=== PATIENT | female | born 1980 | race Caucasian/White ===

== ENCOUNTER 2018-02-16 10:23 | Emergency (ER) | payer MEDICAID ==
[~2018-02-16 10:23] MED LIST: ADV250/50 INH; ALB0.5 IH; ALB0.5 INH; ALB17R INH; ALB18R INH; ALBU8.5H12 IH; ALBUDR INH; ALP5 PO; AMO500 PO; AMO875 PO; AMOX-559 PO; AZI250 PO; BENZ200C15 PO; CEF300 PO; CEP500 PO; CIT20 PO; CLI150 PO; CLIN100S3 PO; DOXY-179 PO; DOXY150T6 PO; ENO100I SC; HYDR-3078 PO; HYDR-3250 FT; HYDR-4308 PO; HYDR-4309 PO; HYDR473S4 PO; IBU800 PO; IPRA14.76 INH; KET10 PO; LEV15R INH; LEVO-85 PO; LOR1 PO; LOR5 PO; LOR5/325 PO; LORA-630 PO; MON10 PO; NO ROUTINE MEDS; ONDA4TAB PO; OXYC-865 PO; OXYC1TAB54 PO; PER PO; PHEN120S16 PO; PRE10 PO; PRE20 PO; PRED-314 PO; PRED20TA6 PO; WAR5 PO; [UNRECOGNIZED DRUG - CODE] PO; [UNRECOGNIZED DRUG - CODE] PO; [UNRECOGNIZED DRUG - OTHER]
--- NOTE | 2018-02-16 10:31 | ER Report ---
History and Physical Time Seen By MD: 10:31 HPI/CHRIS CHIEF COMPLAINT: Neck and shoulder pain HISTORY OF PRESENT ILLNESS: This is a 37-year-old female who presents to the ED for right neck and right shoulder pain. Patient states that Friday she was helping her son lift some equipment up and felt okay Friday night felt okay Friday, then Friday evening began to have some discomfort in her right neck and shoulder. Patient states then it progressively increased over the week she was evaluated by the local PA and was treated outpatient for neck pain secondary to straining while lifting. The patient states that the pain is so intense at times she does have bouts of nausea, no vomiting. Patient denies aches, chills, visual changes, headaches, diarrhea or abdominal pain. Patient is tearful at the time of my exam. She has been taking 800 mg ibuprofen twice a day to help with some of the pain as well as Flexeril. REVIEW OF SYSTEMS: Respiratory: No cough, no dyspnea. Cardiovascular: No chest pain, no palpitations. Gastrointestinal: No vomiting, no abdominal pain. Musculoskeletal: As above. Allergies: Coded Allergies: No Known Drug Allergies (Verified , 02/16/18) Uncoded Allergies: RAG WEED (Allergy, Mild, 05/07/10) Home Meds Active Scripts Metaxalone (SKELAXIN) 800 Mg Tablet, 800 MG PO TID Y for prn, #16 TAB 0 Refills Prov:MARBELLA ZAMBRANO [facility]- 02/16/18 Ibuprofen (IBUPROFEN) 800 Mg Tablet, 1 TAB PO Q8H, #12 TAB Prov:MARBELLA ZAMBRANO [facility]- 02/16/18 Reported Medications Ibuprofen (IBUPROFEN) 800 Mg Tablet, 1 TAB PO Q8H, TAB 02/16/18 Venlafaxine Hcl (VENLAFAXINE HCL ER) 37.5 Mg Cap.er.24h, 150 QDAY 02/16/18 Lorazepam (LORAZEPAM) 0.5 Mg Tablet, 0.5 MG PO Q4-6H Y for ANXIETY 08/15/17 Discontinued Reported Medications Albuterol Sulfate (VENTOLIN HFA) 18 Gm Inh, 2 PUFF INH Q4-6H, INH 02/03/17 [Antidepress] No Conflict Check 11/27/15 Albuterol Sulfate (Albuterol Inh Conc) 2.5 Mg/0.5 Ml Nebu, 1 INH PRN 03/29/13 Discontinued Scripts Ondansetron (ZOFRAN ODT) 4 Mg Tab.rapdis, 4 MG PO Q6H Y for NAUSEA/VOMITING, # 20 TAB.BANG 0 Refills Prov:DAVIS WHITLOCK MD 08/15/17 Ketorolac Tromethamine (KETOROLAC TROMETHAMINE) 10 Mg Tab, 10 MG PO Q6H Y for PAIN, #12 TAB 0 Refills Prov:DAVIS WHITLOCK MD 08/15/17 Oxycodone Hcl/Acetaminophen (PERCOCET 5-325 MG TABLET) 1 Each Tablet, 1 EACH PO Q4H Y for PAIN, #12 TAB 0 Refills Prov:DAVIS WHITLOCK MD 08/15/17 Past Medical/Surgical History Patient has a past medical and surgical history of asthma, PE, kidney stones, chronic tonsillitis, tubal ligation, wisdom teeth extraction. Reviewed Nurses Notes: Yes Hx Smoking: Yes (1PPD) Smoking Status: Current: Every Day Smoker Exposure to Second Hand Smoke?: Yes Hx Substance Use Disorder: No Hx Alcohol Use: Yes Constitutional Vital Sign - Last 24 Hours 02/16/18 02/16/18 02/16/18 02/16/18 10:25 10:28 10:30 10:38 Temp 97.8 Pulse 88 83 Resp 16 B/P (MAP) 147/93 150/101 (117) 147/93 (111) Pulse Ox 97 99 O2 Delivery Room Air 02/16/18 02/16/18 02/16/18 11:08 11:23 11:30 Pulse 145 B/P (MAP) 153/101 (118) Pulse Ox 89 90 Physical Exam General Appearance: The patient is alert, has no immediate need for airway protection and no current signs of toxicity, tearful. Eyes: Pupils equal and round no injection. Respiratory: Chest is non tender, lungs are clear to auscultation. Cardiac: regular rate and rhythm, no clicks, murmurs or rubs. Gastrointestinal: Abdomen is soft and non tender, no masses, bowel sounds normal. Musculoskeletal: Neck: Right side of neck is tight, no obvious deformities to the cervical spine. No crepitus. No step-offs. Pain to cervical spine with palpation, pain to thoracic spine with palpation. Extremities have full range of motion and are non tender. No numbness or tingling. No paresthesias. Skin: No rashes or lesions. DIFFERENTIAL DIAGNOSIS: After history and physical exam differential diagnosis was considered for cervical strain, torticollis, cervical fracture, thoracic strain, cervical radiculopathy and cervical outlet syndrome. Medical Decision Making EKG/Imaging Imaging Location: [facility] Patient: Carolina Crowell : 1980 Visit/Account:[id number] Date of Sevice: 02/16/2018 CERVICAL SPINE MIN 4 VIEW, THORACIC SPINE 3 VIEWS HISTORY: neck and back pain COMPARISON: None. FINDINGS: Three views of the thoracic spine are submitted. Mild levoscoliotic curvature. Very mild degenerative spondylotic changes are seen which are stable. No fracture or acute destructive osseous process. 5 views cervical spine are submitted. Prevertebral soft tissues within normal limits. Very mild spondylotic narrowing with anterior calcifications over the disc space at C4-C5 and C5-C6 is seen. No fracture or destructive osseous process. Bilateral oblique images demonstrate no osseous foraminal encroachment. Odontoid view is symmetric. IMPRESSION: 1. Mild levoscoliotic curvature the thoracic spine without acute finding. Minimal spondylotic changes 2. Very mild spondylotic changes C4-C5 and C5-C6 without acute osseous finding involving the cervical spine. Report Dictated By: Severiano Robert MD at 02/16/2018 11:18 AM Report E-Signed By: Severiano Robert MD at 02/16/2018 11:23 AM WSN:[email or web address] CERVICAL SPINE MIN 4 VIEW, THORACIC SPINE 3 VIEWS HISTORY: neck and back pain COMPARISON: None. FINDINGS: Three views of the thoracic spine are submitted. Mild levoscoliotic curvature. Very mild degenerative spondylotic changes are seen which are stable. No fracture or acute destructive osseous process. 5 views cervical spine are submitted. Prevertebral soft tissues within normal limits. Very mild spondylotic narrowing with anterior calcifications over the disc space at C4-C5 and C5-C6 is seen. No fracture or destructive osseous process. Bilateral oblique images demonstrate no osseous foraminal encroachment. Odontoid view is symmetric. IMPRESSION: 1. Mild levoscoliotic curvature the thoracic spine without acute finding. Minimal spondylotic changes 2. Very mild spondylotic changes C4-C5 and C5-C6 without acute osseous finding involving the cervical spine. Report Dictated By: Severiano Robert MD at 02/16/2018 11:18 AM Report E-Signed By: Severiano Robert MD at 02/16/2018 11:23 AM WSN:[email or web address] ED Course/Re-evaluation ED Course The patient was admitted to room. A history of disc or pain. Differential diagnoses were considered. A cervical spine and thoracic x-rays were obtained which were negative for any acute findings. 60 mg IM Norflex was given to patient. With mild relief. I did review these results with the patient she remained tearful. I did do 3 trigger point injections to the right trapezius muscle using 0.5% bupivacaine. Patient tolerated well. I did send a prescription for 800 mg ibuprofen and Skelaxin to the patient's pharmacy. I did tell the patient that this is likely a torticollis and will likely take some time to resolve. Take the medications as directed as well as trying a warm pack to the right trapezius muscle. Patient was in agreement with my care and discharged home. Decision to Disposition Date: Feb 16, 2018 Decision to Disposition Time: 11:43 Depart Departure Latest Vital Signs Vital Signs Date Time Temp Pulse Resp B/P (MAP) Pulse Ox O2 Delivery O2 Flow Rate FiO2 02/16/18 11:30 153/101 (118) 02/16/18 11:23 90 02/16/18 11:08 145 02/16/18 10:25 97.8 16 Room Air Impression: Primary Impression: Torticollis, acute Condition: Improved Disposition: HOME OR SELF-CARE New Scripts Metaxalone (SKELAXIN) 800 Mg Tablet 800 MG PO TID Y for prn, #16 TAB 0 Refills Prov: MARBELLA ZAMBRANOP-BC 02/16/18 Ibuprofen (IBUPROFEN) 800 Mg Tablet 1 TAB PO Q8H, #12 TAB Prov: MARBELLA ZAMBRANO-AMMY 02/16/18 Departure Forms: ER Transition Record, Medications Reconciliation, Off Work/ School Form, School or Work Release?: Work Number of days to be released: 1 Patient Portal Information Patient Instructions: Spasmodic Torticollis (ED) Additional Instructions: Drink plenty of fluids. Get plenty of rest. Try the new muscle relaxer and ibuprofen every 8 hours as needed. Follow up as indicated. Return for any other concerns or worsening symptoms. MARBELLA ZAMBRANO HOSPITALIST PHYSICIAN-BC Feb 16, 2018 10:31
[2018-02-16] MEDS ORDERED: VENL37.53 (10:32)
[2018-02-16] MEDS ORDERED: IBUP800T37 PO ×2 (10:32→11:40)
[2018-02-16] MEDS ORDERED: ORPHENADRINE 60MG/2ML INJ IM ONE (10:40)
--- NOTE | 2018-02-16 11:26 | RADIOLOGY IMAGING REPORT ---
FACILITY: [facility] [place] PATIENT NAME: Carolina Crowell : 1980 MR: [id number] V: [id number] EXAM DATE: ORDERING PHYSICIAN: MARBELLA ZAMBRANO TECHNOLOGIST: Location: [facility] Patient: Carolina Crowell : 1980 Visit/Account:[id number] Date of Sevice: 02/16/2018 CERVICAL SPINE MIN 4 VIEW, THORACIC SPINE 3 VIEWS HISTORY: neck and back pain COMPARISON: None. FINDINGS: Three views of the thoracic spine are submitted. Mild levoscoliotic curvature. Very mild degenerati ve spondylotic changes are seen which are stable. No fracture or acute destructive osseous process. 5 views cervical spine are submitted. Prevertebral soft tissues within normal limits. Very mild spo ndylotic narrowing with anterior calcifications over the disc space at C4-C5 and C5-C6 is seen. No f racture or destructive osseous process. Bilateral oblique images demonstrate no osseous foraminal en croachment. Odontoid view is symmetric. IMPRESSION: 1. Mild levoscoliotic curvature the thoracic spine without acute finding. Minimal spondylotic busby es 2. Very mild spondylotic changes C4-C5 and C5-C6 without acute osseous finding involving the cervica l spine. Report Dictated By: Severiano Robert MD at 02/16/2018 11:18 AM Report E-Signed By: Severiano Robert MD at 02/16/2018 11:23 AM WSN:[email or web address]
--- NOTE | 2018-02-16 11:27 | RADIOLOGY IMAGING REPORT ---
FACILITY: [facility] PATIENT NAME: Carolina Crowell : 1980 MR: [id number] V: [id number] EXAM DATE: ORDERING PHYSICIAN: MARBELLA ZAMBRANO TECHNOLOGIST: Location: [facility] Patient: Carolina Crowell : 1980 Visit/Account:[id number] Date of Sevice: 02/16/2018 CERVICAL SPINE MIN 4 VIEW, THORACIC SPINE 3 VIEWS HISTORY: neck and back pain COMPARISON: None. FINDINGS: Three views of the thoracic spine are submitted. Mild levoscoliotic curvature. Very mild degenerati ve spondylotic changes are seen which are stable. No fracture or acute destructive osseous process. 5 views cervical spine are submitted. Prevertebral soft tissues within normal limits. Very mild spo ndylotic narrowing with anterior calcifications over the disc space at C4-C5 and C5-C6 is seen. No f racture or destructive osseous process. Bilateral oblique images demonstrate no osseous foraminal en croachment. Odontoid view is symmetric. IMPRESSION: 1. Mild levoscoliotic curvature the thoracic spine without acute finding. Minimal spondylotic busby es 2. Very mild spondylotic changes C4-C5 and C5-C6 without acute osseous finding involving the cervica l spine. Report Dictated By: Severiano Robert MD at 02/16/2018 11:18 AM Report E-Signed By: Severiano Robert MD at 02/16/2018 11:23 AM WSN:[email or web address]
[2018-02-16 11:30] VITALS: BP 153/101
[2018-02-16] MEDS ORDERED: META800T18 PO (11:40)
== END 2018-02-16 11:51 | disposition home or self-care (01) ==
LOC: ER 10:39
DX: M43.6 Torticollis (principal)
CPT/HCPCS: 72050; 72072; 96372; 99283; J2360

== ENCOUNTER 2018-08-29 18:13 | Emergency (ER) | payer MEDICAID ==
[~2018-08-29 18:13] MED LIST changes: +IBUP800T37 PO; +META800T18 PO; +VENL37.53
[2018-08-29 18:18] VITALS: BP 140/85
[2018-08-29] MEDS ORDERED: AMOX-362 PO (18:25)
[2018-08-29] MEDS ORDERED: LOR5/325 PO (18:25)
--- NOTE | 2018-08-29 18:26 | ER Report ---
History and Physical Time Seen By MD: 18:20 Hx. of Stated Complaint: PATIENT REPORTING THAT SHE THINKS SHE HAS A DENTAL INFECTION. SHE IS REPORTING RIGHT SIDED PAIN ON HER UPPER AND LOWER JAW HPI/ROS CHIEF COMPLAINT: Toothache, filling came out HISTORY OF PRESENT ILLNESS: This is a 37-year-old female. She has right-sided dental pain. Diffuse throughout the side of her face jaw up into her ear. Her filling came out of her lower second molar couple of days ago now having severe pain. She has packed some dental wax into the tooth. She does have a dentist av ailable but will need to call them on Friday for an appointment. Has some associated swelling on the right side of her face. Allergies: Coded Allergies: No Known Drug Allergies (Verified , 02/16/18) Uncoded Allergies: RAG WEED (Allergy, Mild, 05/07/10) Home Meds Active Scripts Hydrocodone Bit/Acetaminophen (HYDROCODON-ACETAMINOPHEN 5-325) 1 Each Tablet, 1 EACH PO Q4H PRN for PAIN, #12 TAB 0 Refills Prov:DAVIS WHITLOCK MD 08/29/18 Amoxicillin (AMOXICILLIN) 500 Mg Capsule, 1 CAP PO Q8H, #30 CAPSULE 0 Refills Prov:DAVIS WHITLOCK MD 08/29/18 Ibuprofen (IBUPROFEN) 800 Mg Tablet, 1 TAB PO Q8H, #12 TAB Prov:MARBELLA ZAMBRANO DOGMAN/WOMAN- 02/16/18 Reported Medications Ibuprofen (IBUPROFEN) 800 Mg Tablet, 1 TAB PO Q8H, TAB 02/16/18 Venlafaxine Hcl (VENLAFAXINE HCL ER) 37.5 Mg Cap.er.24h, 150 QDAY 02/16/18 Discontinued Reported Medications Lorazepam (LORAZEPAM) 0.5 Mg Tablet, 0.5 MG PO Q4-6H PRN for ANXIETY 08/15/17 Discontinued Scripts Metaxalone (SKELAXIN) 800 Mg Tablet, 800 MG PO TID PRN for prn, #16 TAB 0 Refills Prov:MARBELLA ZAMBRANO DOGMAN/WOMAN- 02/16/18 Reviewed Nurses Notes: Yes Hx Smoking: Yes (1PPD) Smoking Status: Current: Every Day Smoker Exposure to Second Hand Smoke?: Yes Hx Substance Use Disorder: No Hx Alcohol Use: Yes Constitutional Vital Sign - Last 24 Hours 08/29/18 08/29/18 18:18 18:38 Temp 97.7 Pulse 97 79 Resp 24 B/P (MAP) 140/85 Pulse Ox 89 O2 Delivery Room Air Physical Exam General Appearance: Alert, no distress. Eyes: Pupils equal and round no pallor or injection. ENT: Mucous membranes are moist. Oral mucosa is normal in appearance. Posterior oropharynx has no erythema or exudates. Redness around the right lower second molar on the inside gums. No sign of abscess. Tooth and gums are tender to percussion. Musculoskeletal: Neck is supple non tender, there is some submandibular lymphadenopathy. Skin: Warm and dry, no rashes. DIFFERENTIAL DIAGNOSIS: After history and physical exam differential diagnosis was considered for patient with dental pain due to irritation from loss of a filling as well as some redness of the gum. Medical Decision Making ED Course/Re-evaluation ED Course Home with some Lortab as well as ibuprofen for pain control. Started on amoxicillin. Follow-up with dentist this coming week Decision to Disposition Date: Aug 29, 2018 Decision to Disposition Time: 18:25 Depart Departure Latest Vital Signs Vital Signs Date Time Temp Pulse Resp B/P (MAP) Pulse Ox O2 Delivery O2 Flow Rate FiO2 08/29/18 18:38 79 08/29/18 18:18 97.7 24 140/85 89 Room Air Impression: Primary Impression: Pain, dental Condition: Improved Disposition: HOME OR SELF-CARE New Scripts Hydrocodone Bit/Acetaminophen (HYDROCODON-ACETAMINOPHEN 5-325) 1 Each Tablet 1 EACH PO Q4H PRN for PAIN, #12 TAB 0 Refills Prov: DAVIS WHITLOCK MD 08/29/18 Amoxicillin (AMOXICILLIN) 500 Mg Capsule 1 CAP PO Q8H, #30 CAPSULE 0 Refills Prov: DAVIS WHITLOCK MD 08/29/18 Patient Instructions: Toothache (ED) Additional Instructions: Take the antibiotic Amoxicillin 500mg three times a day. Ibuprofen 200mg over the counter tablets, take 4 tablets every 8 hours. Lortab 5/325, one every 4 hours as needed for severe pain. Call your dentist on Friday to arrange follow-up. DAVIS WHITLOCK MD Aug 29, 2018 18:26
[2018-08-29] MEDS ORDERED: AMOXICILLIN 500 MG CAP PO ONE (18:30)
[2018-08-29] MEDS ORDERED: ACET/HYDROC 5/325MG TH ER ONLY 2 TAB/BOTTLE PO ONE (18:30)
== END 2018-08-29 18:39 | disposition home or self-care (01) ==
LOC: ER 18:17
DX: K08.89 Other specified disorders of teeth and supporting structures (principal)
CPT/HCPCS: 99283

== ENCOUNTER 2018-09-23 14:58 | Emergency (ER) | payer MEDICAID ==
[~2018-09-23 14:58] MED LIST changes: +AMOX-362 PO; -HYDR-4308 PO; -HYDR-4309 PO; +HYDR-653 PO; +HYDR-654 PO
[2018-09-23] MEDS ORDERED: VENL225T5 PO (15:05)
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
[2018-09-23] MEDS ORDERED: ADENOSINE(*)IV SOLN 3MG/ML IVP ONE ×2 (15:10)
[2018-09-23] MEDS ORDERED: NS(*) 0.9% 1000 ML BAG 1,000 ML IV ONE (15:10)
[2018-09-23] MEDS ORDERED: LORazepam 2 MG/ML VIAL IVP ONE (15:10)
--- NOTE | 2018-09-23 15:30 | EKG ---
FACILITY: [facility] PATIENT NAME: ERIK COX : [id number] MR: [id number] V: [id number] EXAM DATE: ORDERING PHYSICIAN: MARBELLA ZAMBRANO TECHNOLOGIST: BUDDY Test Reason : SVT Blood Pressure : / mmHG Vent. Rate : 176 BPM Atrial Rate : 170 BPM P-R Int : 000 ms QRS Dur : 086 ms QT Int : 268 ms P-R-T Axes : 000 086 -88 degrees QTc Int : 458 ms Supraventricular tachycardia T wave abnormality, consider inferolateral ischemia Abnormal ECG No previous ECGs available Confirmed by FLORIAN MOLINA ([id number]) on 09/24/2018 6:24:04 AM Referred By: MARBELLA Confirmed By:FLORIAN MOLINA
--- NOTE | 2018-09-23 15:37 | EKG ---
[place] [facility] [place] NAME: ERIK COX : [id number] MR: [id number] V: [id number] EXAM DATE: ORDERING PHYSICIAN: MARBELLA ZAMBRANO TECHNOLOGIST: BUDDY Test Reason : SVT Blood Pressure : / mmHG Vent. Rate : 109 BPM Atrial Rate : 109 BPM P-R Int : 140 ms QRS Dur : 082 ms QT Int : 332 ms P-R-T Axes : 084 089 243 degrees QTc Int : 447 ms Sinus tachycardia Right atrial enlargement T wave abnormality, consider inferior ischemia T wave abnormality, consider anterolateral ischemia Abnormal ECG When compared with ECG of 23-SEP-2018 15:13, Vent. rate has decreased BY 67 BPM T wave inversion more evident in Anterior leads Confirmed by FLORIAN MOLINA ([id number]) on 09/24/2018 6:24:25 AM Referred By: MARBELLA Confirmed By:FLORIAN MOLINA
[2018-09-23 15:44] LABS: PLATELET COUNT, AUTOMATED 264 K/uL (150-450)
[2018-09-23] MEDS ORDERED: MORPHINE 4 MG/ML SDV IVP ONE (15:45)
--- NOTE | 2018-09-23 16:20 | RADIOLOGY IMAGING REPORT ---
FACILITY: [facility] - [place] PATIENT NAME: Carolina Crowell : 1980 MR: [id number] V: [id number] EXAM DATE: ORDERING PHYSICIAN: MARBELLA ZAMBRANO TECHNOLOGIST: Location: [facility] Patient: Carolina Crowell : 1980 Visit/Account:[id number] Date of Sevice: 09/23/2018 CHEST PA AND LAT History: short of breath FINDINGS: Comparison studies: Chest x-ray 02/03/2017 Tubes and Lines: None. Lungs and pleura: A subtle airspace opacity seen in the right upper lung field on the prior study h as resolved. Lungs are well-aerated. No evidence of pneumonia. Mediastinum: normal. Cardiac silhouette: normal . Osseous structures: Unremarkable for age . IMPRESSION: Normal chest Report Dictated By: Toni Gilmore MD at 09/23/2018 4:15 PM Report E-Signed By: Toni Gilmore MD at 09/23/2018 4:16 PM [id number]
[2018-09-23] MEDS ORDERED: ONDANSETRON 4 MG/2 ML VIAL IVP ONE (16:25)
[2018-09-23] MEDS ORDERED: NS(*) 0.9% 50 ML BAG 50 ML ONE (17:11)
[2018-09-23] MEDS ORDERED: IOPAMIDOL 76% 75 ML INFUS BTL 75 ML ONE (17:11)
--- NOTE | 2018-09-23 17:58 | RADIOLOGY IMAGING REPORT ---
FACILITY: [facility] PATIENT NAME: Carolina Crowell : 1980 MR: [id number] V: [id number] EXAM DATE: [id number] ORDERING PHYSICIAN: MARBELLA ZAMBRANO TECHNOLOGIST: Location: [facility] [place] Patient: Carolina Crowell : 1980 Visit/Account:[id number] Date of Sevice: 09/23/2018 EXAMINATION: CTA of the chest with IV contrast HISTORY: Chest pain. Tachycardia. Elevated d-dimer. TECHNIQUE: Pulmonary embolus protocol - Thin axial CT images of the chest were obtained with IV con trast during maximal pulmonary arterial opacification. Reconstruction of the source data includes mul tiplanar 2D coronal and sagittal reconstructed images, and 3D coronal and sagittal MIP images. Repres entative images have been stored on PACS. One of the following dose optimization techniques was utilized in the performance of this exam: Autom ated exposure control; adjustment of the mA and/or kV according to the patient's size; or use of an i terative reconstruction technique. Specific details can be referenced in the facility's radiology C T exam operational policy. Contrast: 75 mL of IV Isovue-370. COMPARISON: 11/21/2014. FINDINGS: Pulmonary arteries: The pulmonary arteries are well opacified, without suspicious filling defect. Heart, aorta, and great vessels: Normal caliber thoracic aorta, without aneurysm or dissection. Norm al heart size. No pericardial effusion. Lungs and pleura: There is mild diffuse bronchial wall thickening. There are small regions of ground glass opacity in the right upper lobe laterally and anteriorly which may be compatible with an infect ious or inflammatory pneumonitis. Mediastinum and monica: Negative. Visualized upper abdomen: Unremarkable. Chest wall: Negative. Bones: Negative. IMPRESSION: 1. No evidence of pulmonary embolism. 2. Mild diffuse bronchial wall thickening may be compatible with bronchial inflammation. There are so me small regions of groundglass opacity in the right upper lobe laterally and anteriorly which may re present localized regions of pneumonitis. 3. No other acute findings in the chest. Report Dictated By: Danilo Rae MD at 09/23/2018 5:43 PM Report E-Signed By: Danilo Rae MD at 09/23/2018 5:54 PM WSN:[id number]
[2018-09-23] MEDS ORDERED: HYDR-385 PO (18:13)
[2018-09-23] MEDS ORDERED: LORA-1455 PO (18:13)
[2018-09-23 18:26] VITALS: BP 118/81
== END 2018-09-23 18:35 | disposition home or self-care (01) ==
LOC: ER 15:09
DX: I47.1 Supraventricular tachycardia (principal); F41.9 Anxiety disorder, unspecified; R07.89 Other chest pain
CPT/HCPCS: 36415; 71046; 71275; 84484; 85025; 85379; 93005; 96361; 96374; 96375; 99284; J0153; J2060; J2270; J2405; J7030; J7050; Q9967; 82040; 82247; 82310; 82374; 82435; 82565; 82947; 84075; 84132; 84155; 84295; 84450; 84460; 84520

== ENCOUNTER 2018-09-27 11:43 | Emergency (ER) | payer MEDICAID ==
[~2018-09-27 11:43] MED LIST changes: +HYDR-385 PO; +LORA-1455 PO; +VENL225T5 PO
[2018-09-27 12:10] VITALS: BP 136/113
[2018-09-27] MEDS ORDERED: NS(*) 0.9% 1000 ML BAG 1,000 ML IV ONE (12:18)
[2018-09-27] MEDS ORDERED: KETOROLAC 15 MG/ML VIAL IVP ONE (12:20)
--- NOTE | 2018-09-27 12:25 | ER Report ---
History and Physical Time Seen By MD: 12:14 HPI/ROS CHIEF COMPLAINT: Right back, abdominal pain HISTORY OF PRESENT ILLNESS: 37-year-old female patient presents to the emergency room with complaint of right back and abdominal pain. Patient states that she's been having pain since last night. She states that she had felt tired all day yesterday. She states when she woke up to go have dinner with her folks that she was having significant back pain. She states she did manage to go have dinner, however when she got home she went right back to sleep. Patient states when she woke up this morning the pain was still very significant. She states pain seems to wax and wane. She denies taking any medication for this. She denies any trauma to her back. She does have a history of kidney stones, however this does feel different. REVIEW OF SYSTEMS: Respiratory: No cough, no dyspnea. Cardiovascular: No chest pain, no palpitations. Gastrointestinal: No vomiting, no abdominal pain. Musculoskeletal: As noted above Allergies: Coded Allergies: No Known Drug Allergies (Verified , 02/16/18) Uncoded Allergies: RAG WEED (Allergy, Mild, 05/07/10) Home Meds Active Scripts Hydrocodone Bit/Acetaminophen (HYDROCODON-ACETAMINOPHEN 5-325) 1 Each Tablet, 1 EACH PO Q4-6H PRN for PAIN, #8 TAB Prov:ESTEFANÍA VARELA [facility] 09/27/18 Ondansetron (ZOFRAN ODT) 4 Mg Tab.rapdis, 4 MG PO Q6H PRN for NAUSEA/VOMITING, #20 TAB.BANG Prov:ESTEFANÍA VARELA [facility] 09/27/18 Reported Medications Venlafaxine Hcl (VENLAFAXINE HCL ER) 225 Mg Tab.er.24, 225 MG PO QDAY 09/23/18 Discontinued Reported Medications Ibuprofen (IBUPROFEN) 800 Mg Tablet, 1 TAB PO Q8H, TAB 02/16/18 Venlafaxine Hcl (VENLAFAXINE HCL ER) 37.5 Mg Cap.er.24h, 150 QDAY 02/16/18 Discontinued Scripts Hydrocodone Bit/Acetaminophen (HYDROCODON-ACETAMINOPHEN 5-325) 1 Each Tablet, 1 EACH PO Q4-6H PRN for PAIN, #5 TAB 0 Refills Prov:MARBELLA ZAMBRANO [employer] 09/23/18 Lorazepam (ATIVAN) 0.5 Mg Tablet, 0.5 MG PO Q4-6H, #5 TAB 0 Refills Prov:MARBELLA ZAMBRANO [employer]ELOPMENT MA[employer]GER[employer] 09/23/18 Hydrocodone Bit/Acetaminophen (HYDROCODON-ACETAMINOPHEN 5-325) 1 Each Tablet, 1 EACH PO Q4H PRN for PAIN, #12 TAB 0 Refills Prov:DAVIS WHITLOCK MD 08/29/18 Amoxicillin (AMOXICILLIN) 500 Mg Capsule, 1 CAP PO Q8H, #30 CAPSULE 0 Refills Prov:DAVIS WHITLOCK MD 08/29/18 Ibuprofen (IBUPROFEN) 800 Mg Tablet, 1 TAB PO Q8H, #12 TAB Prov:MARBELLA ZAMBRANO [employer] DEVELOPMENT MANAGER[employer] 02/16/18 Past Medical/Surgical History Patient has a past medical and surgical history of asthma, PE, kidney stones, chronic tonsillitis, tubal ligation, wisdom teeth extraction. Reviewed Nurses Notes: Yes Hx Smoking: Yes (1PPD) Smoking Status: Current: Every Day Smoker Exposure to Second Hand Smoke?: Yes Hx Substance Use Disorder: No Hx Alcohol Use: Yes Constitutional Vital Sign - Last 24 Hours 09/27/18 12:10 Temp 99.3 Pulse 108 Resp 16 B/P (MAP) 136/113 Pulse Ox 96 O2 Delivery Room Air Physical Exam General Appearance: The patient is alert, has no immediate need for airway protection and no current signs of toxicity. Respiratory: Chest is non tender, lungs are clear to auscultation. Cardiac: regular rate and rhythm Gastrointestinal: Abdomen is soft and diffusely tender, no masses, bowel sounds normal. Musculoskeletal: Neck: Neck is supple and non tender. Extremities have full range of motion and are non tender. Skin: No rashes or lesions. DIFFERENTIAL DIAGNOSIS: After history and physical exam differential diagnosis was considered for flank pain including but not limited to musculoskeletal causes, kidney stone, pyelonephritis, shingles, and intra-abdominal causes such as diverticulitis and appendicitis. Medical Decision Making Data Points Result Diagram: 09/27/18 1218 09/27/18 1218 Laboratory Hematology Test 09/27/18 12:18 09/27/18 12:47 Red Blood Count 5.18 M/uL (4.17-5.56) Mean Corpuscular Volume 94.0 fL (80.0-96.0) Mean Corpuscular Hemoglobin 32.4 pg (26.0-33.0) Mean Corpuscular Hemoglobin Concent 34.5 g/dL (32.0-36.0) Red Cell Distribution Width 13.2 % (11.5-14.5) Mean Platelet Volume 8.3 fL (7.2-11.1) Neutrophils (%) (Auto) 57.2 % (39.4-72.5) Lymphocytes (%) (Auto) 31.2 % (17.6-49.6) Monocytes (%) (Auto) 8.9 % (4.1-12.4) Eosinophils (%) (Auto) 1.4 % (0.4-6.7) Basophils (%) (Auto) 1.3 % (0.3-1.4) Nucleated RBC Relative Count (auto) 0.0 /100WBC Neutrophils # (Auto) 4.7 K/uL (2.0-7.4) Lymphocytes # (Auto) 2.5 K/uL (1.3-3.6) Monocytes # (Auto) 0.7 K/uL (0.3-1.0) Eosinophils # (Auto) 0.1 K/uL (0.0-0.5) Basophils # (Auto) 0.1 K/uL (0.0-0.1) Nucleated RBC Absolute Count (auto) 0.00 K/uL Erythrocyte Sedimentation Rate 28 mm/HOUR (0-20) Sodium Level 139 mmol/L (137-145) Potassium Level 4.3 mmol/L (3.5-5.0) Chloride Level 107 mmol/L (98-107) Carbon Dioxide Level 25 mmol/L (22-31) Blood Urea Nitrogen 13 mg/dl (7-18) Creatinine 0.60 mg/dl (0.52-1.04) Glomerular Filtration Rate Calc > 60.0 Random Glucose 98 mg/dl (75-110) Calcium Level 9.2 mg/dl (8.4-10.2) Total Bilirubin 0.4 mg/dl (0.2-1.3) Aspartate Amino Transf (AST/SGOT) 23 U/L (0-35) Alanine Aminotransferase (ALT/SGPT) 46 U/L (0-56) Alkaline Phosphatase 131 U/L (0-126) C-Reactive Protein 2.1 mg/dl (<1.0) Total Protein 8.3 g/dl (6.3-8.2) Albumin 4.3 g/dl (3.5-5.0) Human Chorionic Gonadotropin, Qual Negative (NEGATIVE) Urine Color Yellow Urine Clarity Slightly-cloudy Urine pH 6.0 pH (4.8-9.5) Urine Specific [place] 1.020 Urine Protein Negative mg/dL (NEGATIVE) Urine Glucose (UA) Negative mg/dL (NEGATIVE) Urine Ketones Negative mg/dL (NEGATIVE) Urine Blood Negative (NEGATIVE) Urine Nitrite Negative (NEGATIVE) Urine Bilirubin Negative (NEGATIVE) Urine Urobilinogen Negative mg/dL (0.2-1.9) Urine Leukocyte Esterase Negative (NEGATIVE) Urine RBC None /HPF (0-2/HPF) Urine WBC 1 /HPF (0-5/HPF) Urine Squamous Epithelial Cells Many /LPF (</=FEW) Urine Bacteria Negative /HPF (NONE-FEW) Urine Mucus None /HPF (NONE-FEW) Chemistry Test 09/27/18 12:18 09/27/18 12:47 White Blood Count 8.1 k/uL (4.5-11.0) Red Blood Count 5.18 M/uL (4.17-5.56) Hemoglobin 16.8 g/dL (12.0-16.0) Hematocrit 48.7 % (34.0-47.0) Mean Corpuscular Volume 94.0 fL (80.0-96.0) Mean Corpuscular Hemoglobin 32.4 pg (26.0-33.0) Mean Corpuscular Hemoglobin Concent 34.5 g/dL (32.0-36.0) Red Cell Distribution Width 13.2 % (11.5-14.5) Platelet Count 324 K/uL (150-450) Mean Platelet Volume 8.3 fL (7.2-11.1) Neutrophils (%) (Auto) 57.2 % (39.4-72.5) Lymphocytes (%) (Auto) 31.2 % (17.6-49.6) Monocytes (%) (Auto) 8.9 % (4.1-12.4) Eosinophils (%) (Auto) 1.4 % (0.4-6.7) Basophils (%) (Auto) 1.3 % (0.3-1.4) Nucleated RBC Relative Count (auto) 0.0 /100WBC Neutrophils # (Auto) 4.7 K/uL (2.0-7.4) Lymphocytes # (Auto) 2.5 K/uL (1.3-3.6) Monocytes # (Auto) 0.7 K/uL (0.3-1.0) Eosinophils # (Auto) 0.1 K/uL (0.0-0.5) Basophils # (Auto) 0.1 K/uL (0.0-0.1) Nucleated RBC Absolute Count (auto) 0.00 K/uL Erythrocyte Sedimentation Rate 28 mm/HOUR (0-20) Glomerular Filtration Rate Calc > 60.0 Calcium Level 9.2 mg/dl (8.4-10.2) Total Bilirubin 0.4 mg/dl (0.2-1.3) Aspartate Amino Transf (AST/SGOT) 23 U/L (0-35) Alanine Aminotransferase (ALT/SGPT) 46 U/L (0-56) Alkaline Phosphatase 131 U/L (0-126) C-Reactive Protein 2.1 mg/dl (<1.0) Total Protein 8.3 g/dl (6.3-8.2) Albumin 4.3 g/dl (3.5-5.0) Human Chorionic Gonadotropin, Qual Negative (NEGATIVE) Urine Color Yellow Urine Clarity Slightly-cloudy Urine pH 6.0 pH (4.8-9.5) Urine Specific [place] 1.020 Urine Protein Negative mg/dL (NEGATIVE) Urine Glucose (UA) Negative mg/dL (NEGATIVE) Urine Ketones Negative mg/dL (NEGATIVE) Urine Blood Negative (NEGATIVE) Urine Nitrite Negative (NEGATIVE) Urine Bilirubin Negative (NEGATIVE) Urine Urobilinogen Negative mg/dL (0.2-1.9) Urine Leukocyte Esterase Negative (NEGATIVE) Urine RBC None /HPF (0-2/HPF) Urine WBC 1 /HPF (0-5/HPF) Urine Squamous Epithelial Cells Many /LPF (</=FEW) Urine Bacteria Negative /HPF (NONE-FEW) Urine Mucus None /HPF (NONE-FEW) Urinalysis Test 09/27/18 12:47 Urine Color Yellow Urine Clarity Slightly-cloudy Urine pH 6.0 pH (4.8-9.5) Urine Specific [place] 1.020 Urine Protein Negative mg/dL (NEGATIVE) Urine Glucose (UA) Negative mg/dL (NEGATIVE) Urine Ketones Negative mg/dL (NEGATIVE) Urine Blood Negative (NEGATIVE) Urine Nitrite Negative (NEGATIVE) Urine Bilirubin Negative (NEGATIVE) Urine Urobilinogen Negative mg/dL (0.2-1.9) Urine Leukocyte Esterase Negative (NEGATIVE) Urine RBC None /HPF (0-2/HPF) Urine WBC 1 /HPF (0-5/HPF) Urine Squamous Epithelial Cells Many /LPF (</=FEW) Urine Bacteria Negative /HPF (NONE-FEW) Urine Mucus None /HPF (NONE-FEW) EKG/Imaging Imaging ABDOMEN/PELVIS WITH CONTRAST Additional pertinent History: Abdominal pain TECHNIQUE: Spiral scan was through the abdomen and pelvis during injection of nonionic iodinated intravenous contrast. Contrast: 75 mL of Isovue-370 COMPARISON STUDIES: None One of the following dose optimization techniques was utilized in the performance of this exam: Automated exposure control; adjustment of the mA and/or kV according to the patient's size; or use of an iterative fabien nstruction technique. Specific details can be referenced in the facility's radiology CT exam operational policy. FINDINGS: Liver / biliary: No liver lesions. Gallbladder unremarkable. Pancreas: negative Spleen: negative Adrenal glands: negative Kidneys / retroperitoneum: No stones or renal obstructive uropathy change. Pelvic structures: Bladder empty. No obvious evidence of a stone within the decompressed bladder Bowel / peritoneum / mesenteries: No colonic mass lesions. No bowel infl ammation. Appendix normal no appendicitis. Small amount of free fluid in the pelvis. There is a 2.1 cm cyst within the right ovary. Vessels: Negative Musculoskeletal / Body wall: negative Lymph node assessment: negative Lower chest: negative IMPRESSION: 1. Negative CT scan for acute pathology. Specifically, no appendicitis or renal obstructive uropathy change. 2. Free fluid likely related to a ruptured ovarian cyst Report Dictated By: Rocky Araujo MD at 09/27/2018 1:12 PM Report E-Signed By: Rocky Araujo MD at 09/27/2018 1:39 PM ED Course/Re-evaluation ED Course Patient was admitted to an exam room, history and physical were obtained. Differential diagnoses were considered. On examination patient has tenderness to the right side of the back, as well as throughout the abdomen. A CBC, CMP, urinalysis were obtained. Results were unremarkable. A CT scan of abdomen and pelvis was done which showed a likely ruptured ovarian cyst. I discussed the findings with patient. We had initially treated her with Toradol which was unsuccessful. We then treated her with fentanyl which seemed to help. I informed her that there does not appear to be any infection, however she does have what appears to be a ruptured ovarian cyst. That is likely the free fluid this irritating the abdomen. We will go ahead and discharge patient home. We will treat her with Zofran and a limited supply of pain medication. I anticipate that as this fluid is reabsorbed that her pain will improve over the next 2 days. Patient verbalized understanding and agreement with plan. Decision to Disposition Date: Sep 27, 2018 Decision to Disposition Time: 13:44 Depart Departure Latest Vital Signs Vital Signs Date Time Temp Pulse Resp B/P (MAP) Pulse Ox O2 Delivery O2 Flow Rate FiO2 09/27/18 12:10 99.3 108 16 136/113 96 Room Air Impression: Primary Impression: Ruptured ovarian cyst Condition: Improved Disposition: HOME OR SELF-CARE New Scripts Hydrocodone Bit/Acetaminophen (HYDROCODON-ACETAMINOPHEN 5-325) 1 Each Tablet 1 EACH PO Q4-6H PRN for PAIN, #8 TAB Prov: ESTEFANÍA VARELA 09/27/18 Ondansetron (ZOFRAN ODT) 4 Mg Tab.rapdis 4 MG PO Q6H PRN for NAUSEA/VOMITING, #20 TAB.BANG Prov: ESTEFANÍA VARELA 09/27/18 Patient Instructions: Ruptured Ovarian Cyst (ED) Additional Instructions: Limit activity by pain. Increase fluid intake. Get plenty of rest. Follow up with your primary care provider in the next week. The pain will improve over the next couple of days as the fluid reabsorbs. ESTEFANÍA VARELA Sep 27, 2018 12:24
[2018-09-27 12:31] LABS: PLATELET COUNT, AUTOMATED 324 K/uL (150-450)
[2018-09-27] MEDS ORDERED: IOPAMIDOL 76% 75 ML INFUS BTL 75 ML ONE (12:38)
[2018-09-27] MEDS ORDERED: MORPHINE 4 MG/ML SDV IVP ONE (13:15)
[2018-09-27] MEDS ORDERED: fentaNYL CITR 100 MCG/2 ML AMP IVP ONE (13:25)
[2018-09-27] MEDS ORDERED: ONDA4TAB PO (13:42)
[2018-09-27] MEDS ORDERED: HYDR-385 PO (13:42)
--- NOTE | 2018-09-27 13:43 | RADIOLOGY IMAGING REPORT ---
FACILITY: [facility] - [place] PATIENT NAME: Carolina Crowell : 1980 MR: [id number] V: [id number] EXAM DATE: ORDERING PHYSICIAN: ESTEFANÍA VARELA TECHNOLOGIST: Location: [facility] Patient: Carolina Crowell : 1980 Visit/Account:[id number] Date of Sevice: 09/27/2018 ABDOMEN/PELVIS WITH CONTRAST Additional pertinent History: Abdominal pain TECHNIQUE: Spiral scan was through the abdomen and pelvis during injection of nonionic iodinated in travenous contrast. Contrast: 75 mL of Isovue-370 COMPARISON STUDIES: None One of the following dose optimization techniques was utilized in the performance of this exam: Autom ated exposure control; adjustment of the mA and/or kV according to the patient's size; or use of an i terative reconstruction technique. Specific details can be referenced in the facility's radiology C T exam operational policy. FINDINGS: Liver / biliary: No liver lesions. Gallbladder unremarkable. Pancreas: negative Spleen: negative Adrenal glands: negative Kidneys / retroperitoneum: No stones or renal obstructive uropathy change. Pelvic structures: Bladder empty. No obvious evidence of a stone within the decompressed bladder Bowel / peritoneum / mesenteries: No colonic mass lesions. No bowel inflammation. Appendix normal n o appendicitis. Small amount of free fluid in the pelvis. There is a 2.1 cm cyst within the right o vary. Vessels: Negative Musculoskeletal / Body wall: negative Lymph node assessment: negative Lower chest: negative IMPRESSION: 1. Negative CT scan for acute pathology. Specifically, no appendicitis or renal obstructive uropath y change. 2. Free fluid likely related to a ruptured ovarian cyst Report Dictated By: Rocky Araujo MD at 09/27/2018 1:12 PM Report E-Signed By: Rocky Araujo MD at 09/27/2018 1:39 PM WSN:HIRO-PATRICIA
== END 2018-09-27 14:00 | disposition home or self-care (01) ==
LOC: ER 12:10
DX: N83.201 Unspecified ovarian cyst, right side (principal)
CPT/HCPCS: 74177; 81001; 84703; 85025; 85651; 86140; 96361; 96374; 96375; 99284; J1885; J3010; J7030; Q9967; 82040; 82247; 82310; 82374; 82435; 82565; 82947; 84075; 84132; 84155; 84295; 84450; 84460; 84520

== ENCOUNTER 2018-12-12 12:39 | Emergency (ER) | payer MEDICAID ==
[2018-12-12 12:42] VITALS: BP 142/84
--- NOTE | 2018-12-12 12:43 | ER Report ---
History and Physical Time Seen By MD: 12:42 HPI/ROS CHIEF COMPLAINT: Left lower molar dental pain status post tooth extraction HISTORY OF PRESENT ILLNESS: Patient is a 38-year-old female here with complaints of pain at the site of a prior tooth extraction in the left lower molars which took place approximately 15 days ago. Patient reports that the pain started approximately 6 days ago and has developed mild swelling along the left face, worsening dental pain in spite of taking ibuprofen and Tylenol. Patient also complains of fullness sensation left ear without drainage. Patient is afebrile, hemodynamically stable complaining of moderate to severe pain. She denies dysphagia, odynophagia, difficulty breathing. REVIEW OF SYSTEMS: Constitutional: No fever, no chills. Eyes: No discharge. ENT: + Left lower posterior pain at the site of a prior dental extraction Cardiovascular: No chest pain, no palpitations. Respiratory: No cough, no shortness of breath. Gastrointestinal: No abdominal pain, no vomiting. Genitourinary: No hematuria. Musculoskeletal: No back pain. Skin: No rashes. Neurological: No headache. No focal neurological deficits Allergies: Coded Allergies: No Known Drug Allergies (Verified , 02/16/18) Uncoded Allergies: RAG WEED (Allergy, Mild, 05/07/10) Home Meds Active Scripts Amoxicillin/Pot Clav 875-125 Mg Tab (AUGMENTIN 875-125 TABLET) 1 Each Tablet, 1 TAB PO Q12H for 7 Days, #14 TAB Prov:YEHUDA LUNA DO 12/12/18 Tramadol Hcl (TRAMADOL HCL) 50 Mg Tablet, 50 MG PO Q6H PRN for PAIN, #12 TAB 0 Refills Prov:YEHUDA LUNA DO 12/12/18 Reported Medications Venlafaxine Hcl (VENLAFAXINE HCL ER) 225 Mg Tab.er.24, 225 MG PO QDAY 09/23/18 Discontinued Scripts Hydrocodone Bit/Acetaminophen (HYDROCODON-ACETAMINOPHEN 5-325) 1 Each Tablet, 1 EACH PO Q4-6H PRN for PAIN, #8 TAB Prov:ESTEFANÍA VARELA 09/27/18 Ondansetron (ZOFRAN ODT) 4 Mg Tab.rapdis, 4 MG PO Q6H PRN for NAUSEA/VOMITING, #20 TAB.BANG Prov:ESTEFANÍA VARELA 09/27/18 Hx Smoking: Yes (1PPD) Smoking Status: Current: Every Day Smoker Exposure to Second Hand Smoke?: Yes Hx Substance Use Disorder: No Hx Alcohol Use: Yes Constitutional Vital Sign - Last 24 Hours 12/12/18 12:42 Temp 98.4 Pulse 86 Resp 20 B/P (MAP) 142/84 Pulse Ox 91 O2 Delivery Room Air Physical Exam General Appearance: The patient is alert, has no immediate need for airway protection and no signs of toxicity. Moderate distress secondary to pain Eyes: Pupils equal and round no pallor or injection. ENT, Mouth: Site of prior dental extraction of the left lower molars with tenderness on palpation, mild edema of the left cheek. No erythema or exudates of the posterior oropharynx. + Left-sided cervical lymphadenopathy Respiratory: There are no retractions, lungs are clear to auscultation. Cardiovascular: Regular rate and rhythm. [ ] Gastrointestinal: Abdomen is soft and non tender, no masses, bowel sounds normal. Neurological: No focal neurological deficits Skin: Warm and dry, no rashes. Musculoskeletal: Neck is supple non tender. Extremities are nontender, nonswollen and have full range of motion. DIFFERENTIAL DIAGNOSIS: After history and physical exam differential diagnosis was considered for dry socket, dental abscess, also myelitis, ANUG, Lemierre's syndrome, cellulitis Medical Decision Making ED Course/Re-evaluation ED Course Patient is a 38-year-old female here status post tooth extraction of the left lower molars approximately 15 days ago with subsequent development of pain swelling and left ear fullness approximately 6 days ago. Patient has been taking ibuprofen and Tylenol without relief of symptoms. Patient likely has developed dry socket however with the combination of left facial swelling, left cervical adenopathy, patient will be treated for suspected infection. The socket was packed using eugenol dry socket paste, dental block was performed using bupivacaine with epinephrine for an inferior alveolar dental block. Patient was started on Augmentin seven-day course. Antimicrobial therapy. Patient was given prescription for tramadol for breakthrough pain control. Return precautions provided. Close dentistry follow-up recommended in the next couple days. Procedure Inferior alveolar nerve block: Anatomical structures were identified, site of suspected infection was identified to the left lower molar extraction site. Inferior alveolar nerve block was performed using bupivacaine 0.5% with epinephrine approximately 4 mL. Patient tolerated the procedure well. Hemostasis was achieved. Decision to Disposition Date: Dec 12, 2018 Decision to Disposition Time: 13:11 Depart Departure Latest Vital Signs Vital Signs Date Time Temp Pulse Resp B/P (MAP) Pulse Ox O2 Delivery O2 Flow Rate FiO2 12/12/18 12:42 98.4 86 20 142/84 91 Room Air Impression: Primary Impression: Pain, dental Condition: Improved Disposition: HOME OR SELF-CARE New Scripts Amoxicillin/Pot Clav 875-125 Mg Tab (AUGMENTIN 875-125 TABLET) 1 Each Tablet 1 TAB PO Q12H for 7 Days, #14 TAB Prov: YEHUDA LUNA DO 12/12/18 Tramadol Hcl (TRAMADOL HCL) 50 Mg Tablet 50 MG PO Q6H PRN for PAIN, #12 TAB 0 Refills Prov: YEHUDA LUNA DO 12/12/18 Patient Instructions: Dental Abscess (ED) Additional Instructions: Please drink plenty of water. Please take one tablet of Augmentin twice daily for 7 days for treatment of the infection. You may take naproxen up to 500 mg twice daily, or ibuprofen up to 800 mg every 8 hours for primary pain control and 1 tramadol every 8 hours as needed for breakthrough pain control. Please follow up closely with dentistry for further outpatient evaluation and care. Please return immediately if you develop increasing pain, fevers, difficulty swallowing, difficulty breathing, visual changes, headaches. YEHUDA LUNA DO Dec 12, 2018 12:43
[2018-12-12] MEDS ORDERED: AMOX-559 PO (13:03)
[2018-12-12] MEDS ORDERED: TRAM-420 PO (13:03)
[2018-12-12] MEDS ORDERED: AMOX/CLAV 875 MG TAB PO ONE (13:05)
[2018-12-12] MEDS ORDERED: traMADol 50 MG TAB PO ONE (13:05)
== END 2018-12-12 13:25 | disposition home or self-care (01) ==
LOC: ER 12:46
DX: K08.89 Other specified disorders of teeth and supporting structures (principal)
CPT/HCPCS: 99283

== ENCOUNTER 2019-02-17 10:58 | Emergency (ER) | payer SELFPAY ==
[~2019-02-17 10:58] MED LIST changes: +TRAM-420 PO
--- NOTE | 2019-02-17 11:11 | ER Report ---
History and Physical Time Seen By MD: 11:11 Hx. of Stated Complaint: ABDOMINAL PAIN DESCRIBED BURNING THAT RADIATES TO BACK SINCE YESTERDAY. HPI/ROS CHIEF COMPLAINT: Left lower quadrant abdominal pain, back pain HISTORY OF PRESENT ILLNESS: 38-year-old female patient presents to emergency room with complaint of left lower quadrant abdominal pain, back pain. Patient states that she was working yesterday, as a cook and a body piercer when she developed this left lower quadrant abdominal pain. Patient states the pain seems to wrap around her back. Patient states that she was putting away stock items. She states that the heaviest thing she lifted weights approximately 20 pounds. She states that the pain came out of nowhere. She states this pain was significantly worse this morning when she got up. She states is slightly better at this point time. Patient rates her pain a 6 out of 10. She states this morning she woke up it was a 10 out of 10. Patient states she is not taking any medication for this. REVIEW OF SYSTEMS: Respiratory: No cough, no dyspnea. Cardiovascular: No chest pain, no palpitations. Gastrointestinal: As noted above. Musculoskeletal: As noted above Allergies: Coded Allergies: No Known Drug Allergies (Verified , 02/16/18) Uncoded Allergies: RAG WEED (Allergy, Mild, 05/07/10) Home Meds Active Scripts Cyclobenzaprine Hcl (CYCLOBENZAPRINE HCL) 10 Mg Tablet, 10 MG PO TID PRN for MUSCLE SPASMS, #21 TAB Prov:ESTEFANÍA VARELA [facility] 02/17/19 Ketorolac Tromethamine (KETOROLAC TROMETHAMINE) 10 Mg Tab, 10 MG PO Q6H, #20 TAB Prov:ESTEFANÍA VARELA [facility] 02/17/19 Reported Medications Venlafaxine Hcl (VENLAFAXINE HCL ER) 225 Mg Tab.er.24, 225 MG PO QDAY 09/23/18 Discontinued Scripts Amoxicillin/Pot Clav 875-125 Mg Tab (AUGMENTIN 875-125 TABLET) 1 Each Tablet, 1 TAB PO Q12H for 7 Days, #14 TAB Prov:YEHUDA LUNA DO 12/12/18 Tramadol Hcl (TRAMADOL HCL) 50 Mg Tablet, 50 MG PO Q6H PRN for PAIN, #12 TAB 0 Refills Prov:YEHUDA LUNA DO 12/12/18 Past Medical/Surgical History Patient has a past medical history of asthma, PE, kidney stones, tonsillitis, alcohol abuse, depression. Patient has a surgical history of tubal ligation, wisdom tooth surgery. Patient has a family medical history of cancer, CAD, diabetes, psychiatric problems. Reviewed Nurses Notes: Yes Hx Smoking: Yes (1PPD) Smoking Status: Current: Every Day Smoker Exposure to Second Hand Smoke?: Yes Hx Substance Use Disorder: No Hx Alcohol Use: Yes Constitutional Vital Sign - Last 24 Hours 02/17/19 02/17/19 11:07 13:31 Temp 98.7 Pulse 104 87 Resp 20 14 B/P (MAP) 143/92 141/82 (101) Pulse Ox 90 94 O2 Delivery Room Air Room Air Physical Exam General Appearance: The patient is alert, has no immediate need for airway protection and no current signs of toxicity. Respiratory: Chest is non tender, lungs are clear to auscultation. Cardiac: regular rate and rhythm Gastrointestinal: Abdomen is soft and non tender, no masses, bowel sounds normal. Musculoskeletal: Neck: Neck is supple and non tender. Back: Patient is tender along the midline of the lumbar vertebra, no tenderness noted to the paraspinal muscles. Extremities have full range of motion and are non tender. Skin: No rashes or lesions. DIFFERENTIAL DIAGNOSIS: After history and physical exam differential diagnosis was considered for back pain including but not limited to muscular pain, herniated disc, spine fracture, intra-abdominal causes and urinary tract inf ection. Medical Decision Making Data Points Result Diagram: 02/17/19 1124 02/17/19 1124 Laboratory Hematology Test 02/17/19 11:03 02/17/19 11:24 Urine Color Yellow Urine Clarity Clear Urine pH 7.0 pH (4.8-9.5) Urine Specific [place] 1.019 Urine Protein Negative mg/dL (NEGATIVE) Urine Glucose (UA) Negative mg/dL (NEGATIVE) Urine Ketones Trace mg/dL (NEGATIVE) Urine Blood Negative (NEGATIVE) Urine Nitrite Negative (NEGATIVE) Urine Bilirubin Negative (NEGATIVE) Urine Urobilinogen Negative mg/dL (0.2-1.9) Urine Leukocyte Esterase Negative (NEGATIVE) Urine RBC <1 /HPF (0-2/HPF) Urine WBC <1 /HPF (0-5/HPF) Urine Squamous Epithelial Cells Many /LPF (</=FEW) Urine Bacteria Negative /HPF (NONE-FEW) Urine Mucus None /HPF (NONE-FEW) Red Blood Count 4.79 M/uL (4.17-5.56) Mean Corpuscular Volume 94.1 fL (80.0-96.0) Mean Corpuscular Hemoglobin 31.9 pg (26.0-33.0) Mean Corpuscular Hemoglobin Concent 33.9 g/dL (32.0-36.0) Red Cell Distribution Width 13.2 % (11.5-14.5) Mean Platelet Volume 7.9 fL (7.2-11.1) Neutrophils (%) (Auto) 50.4 % (39.4-72.5) Lymphocytes (%) (Auto) 38.5 % (17.6-49.6) Monocytes (%) (Auto) 8.7 % (4.1-12.4) Eosinophils (%) (Auto) 1.4 % (0.4-6.7) Basophils (%) (Auto) 1.0 % (0.3-1.4) Nucleated RBC Relative Count (auto) 0.0 /100WBC Neutrophils # (Auto) 3.0 K/uL (2.0-7.4) Lymphocytes # (Auto) 2.3 K/uL (1.3-3.6) Monocytes # (Auto) 0.5 K/uL (0.3-1.0) Eosinophils # (Auto) 0.1 K/uL (0.0-0.5) Basophils # (Auto) 0.1 K/uL (0.0-0.1) Nucleated RBC Absolute Count (auto) 0.00 K/uL Sodium Level 139 mmol/L (137-145) Potassium Level 4.1 mmol/L (3.5-5.0) Chloride Level 106 mmol/L (98-107) Carbon Dioxide Level 26 mmol/L (22-31) Blood Urea Nitrogen 16 mg/dl (7-18) Creatinine 0.60 mg/dl (0.52-1.04) Glomerular Filtration Rate Calc > 60.0 Random Glucose 87 mg/dl (75-110) Calcium Level 9.2 mg/dl (8.4-10.2) Total Bilirubin 0.2 mg/dl (0.2-1.3) Aspartate Amino Transf (AST/SGOT) 27 U/L (0-35) Alanine Aminotransferase (ALT/SGPT) 26 U/L (0-56) Alkaline Phosphatase 69 U/L (0-126) Total Protein 7.5 g/dl (6.3-8.2) Albumin 4.4 g/dl (3.5-5.0) Amylase Level 38 U/L (0-110) Lipase 134 U/L (23-300) Human Chorionic Gonadotropin, Qual Negative (NEGATIVE) Chemistry Test 02/17/19 11:03 02/17/19 11:24 Urine Color Yellow Urine Clarity Clear Urine pH 7.0 pH (4.8-9.5) Urine Specific [place] 1.019 Urine Protein Negative mg/dL (NEGATIVE) Urine Glucose (UA) Negative mg/dL (NEGATIVE) Urine Ketones Trace mg/dL (NEGATIVE) Urine Blood Negative (NEGATIVE) Urine Nitrite Negative (NEGATIVE) Urine Bilirubin Negative (NEGATIVE) Urine Urobilinogen Negative mg/dL (0.2-1.9) Urine Leukocyte Esterase Negative (NEGATIVE) Urine RBC <1 /HPF (0-2/HPF) Urine WBC <1 /HPF (0-5/HPF) Urine Squamous Epithelial Cells Many /LPF (</=FEW) Urine Bacteria Negative /HPF (NONE-FEW) Urine Mucus None /HPF (NONE-FEW) White Blood Count 5.9 k/uL (4.5-11.0) Red Blood Count 4.79 M/uL (4.17-5.56) Hemoglobin 15.3 g/dL (12.0-16.0) Hematocrit 45.1 % (34.0-47.0) Mean Corpuscular Volume 94.1 fL (80.0-96.0) Mean Corpuscular Hemoglobin 31.9 pg (26.0-33.0) Mean Corpuscular Hemoglobin Concent 33.9 g/dL (32.0-36.0) Red Cell Distribution Width 13.2 % (11.5-14.5) Platelet Count 281 K/uL (150-450) Mean Platelet Volume 7.9 fL (7.2-11.1) Neutrophils (%) (Auto) 50.4 % (39.4-72.5) Lymphocytes (%) (Auto) 38.5 % (17.6-49.6) Monocytes (%) (Auto) 8.7 % (4.1-12.4) Eosinophils (%) (Auto) 1.4 % (0.4-6.7) Basophils (%) (Auto) 1.0 % (0.3-1.4) Nucleated RBC Relative Count (auto) 0.0 /100WBC Neutrophils # (Auto) 3.0 K/uL (2.0-7.4) Lymphocytes # (Auto) 2.3 K/uL (1.3-3.6) Monocytes # (Auto) 0.5 K/uL (0.3-1.0) Eosinophils # (Auto) 0.1 K/uL (0.0-0.5) Basophils # (Auto) 0.1 K/uL (0.0-0.1) Nucleated RBC Absolute Count (auto) 0.00 K/uL Glomerular Filtration Rate Calc > 60.0 Calcium Level 9.2 mg/dl (8.4-10.2) Total Bilirubin 0.2 mg/dl (0.2-1.3) Aspartate Amino Transf (AST/SGOT) 27 U/L (0-35) Alanine Aminotransferase (ALT/SGPT) 26 U/L (0-56) Alkaline Phosphatase 69 U/L (0-126) Total Protein 7.5 g/dl (6.3-8.2) Albumin 4.4 g/dl (3.5-5.0) Amylase Level 38 U/L (0-110) Lipase 134 U/L (23-300) Human Chorionic Gonadotropin, Qual Negative (NEGATIVE) Urinalysis Test 02/17/19 11:03 Urine Color Yellow Urine Clarity Clear Urine pH 7.0 pH (4.8-9.5) Urine Specific [place] 1.019 Urine Protein Negative mg/dL (NEGATIVE) Urine Glucose (UA) Negative mg/dL (NEGATIVE) Urine Ketones Trace mg/dL (NEGATIVE) Urine Blood Negative (NEGATIVE) Urine Nitrite Negative (NEGATIVE) Urine Bilirubin Negative (NEGATIVE) Urine Urobilinogen Negative mg/dL (0.2-1.9) Urine Leukocyte Esterase Negative (NEGATIVE) Urine RBC <1 /HPF (0-2/HPF) Urine WBC <1 /HPF (0-5/HPF) Urine Squamous Epithelial Cells Many /LPF (</=FEW) Urine Bacteria Negative /HPF (NONE-FEW) Urine Mucus None /HPF (NONE-FEW) EKG/Imaging Imaging L-SPINE >4 VIEWS History: back pain ADDITIONAL CLINICAL HISTORY none COMPARISON STUDIES: Comparison radiographs 11/29/2014 FINDINGS: Osseous structures: Normal. Spinal axis aligned. Disc space height : Well-maintained. Soft tissues : Normal. IMPRESSION: Negative exam. No radiographically evident disc disease. Etiology of patient's pain is not identified. Report Dictated By: Toni Gilmore MD at 02/17/2019 12:57 PM Report E-Signed By: Toni Gilmore MD at 02/17/2019 12:59 PM ED Course/Re-evaluation ED Course Patient was admitted to an exam room, history and physical were obtained. Differential diagnoses were considered. On examination lungs are clear, heart is regular, abdomen is soft and nontender. Patient did have some tenderness to the lumbar spine. An IV was started, patient received a liter of normal saline. A CBC, CMP, urinalysis were obtained. The lab results were unremarkable. I discussed the findings with the patient. At this point, do not believe there is an intra-abdominal process going on. As a result we'll go ahead and do an x-ray of the lumbar spine. The x-ray was negative. I discussed findings with patient. My review of the x-rays of did feel that she had loss of lordosis in the lumbar spine. As result of special having some spasms. We'll go ahead and put her on a limited supply of Flexeril as well as Toradol to help with the pain. She is follow-up with primary care provider in the next week. She is return to emergency room if condition worsens. Patient verbalized understanding and agreement with plan. Decision to Disposition Date: Feb 17, 2019 Decision to Disposition Time: 13:16 Depart Departure Latest Vital Signs Vital Signs Date Time Temp Pulse Resp B/P (MAP) Pulse Ox O2 Delivery O2 Flow Rate FiO2 02/17/19 13:31 87 14 141/82 (101) 94 Room Air 02/17/19 11:07 98.7 Impression: Primary Impression: Lumbar strain Condition: Improved Disposition: HOME OR SELF-CARE New Scripts Cyclobenzaprine Hcl (CYCLOBENZAPRINE HCL) 10 Mg Tablet 10 MG PO TID PRN for MUSCLE SPASMS, #21 TAB Prov: ESTEFANÍA VARELA [employer] 02/17/19 Ketorolac Tromethamine (KETOROLAC TROMETHAMINE) 10 Mg Tab 10 MG PO Q6H, #20 TAB Prov: NICHOLEESTEFANÍA LUBIN 02/17/19 Patient Instructions: Low Back Strain (ED) Additional Instructions: Limit activity by pain. Get plenty of rest. Follow up with your primary care provider in the next 3-5 days. Return to the ER if condition worsens. Take the medication as prescribed. Problem Qualifiers Primary Impression: Lumbar strain Encounter type: initial encounter Qualified Codes: S39.012A - Strain of muscle, fascia and tendon of lower back, initial encounter ESTEFANÍA VARELA Feb 17, 2019 11:11
[2019-02-17] MEDS ORDERED: NS(*) 0.9% 1000 ML BAG 1,000 ML IV ONE (11:16)
[2019-02-17 11:40] LABS: PLATELET COUNT, AUTOMATED 281 K/uL (150-450)
--- NOTE | 2019-02-17 13:04 | RADIOLOGY IMAGING REPORT ---
FACILITY: [facility] PATIENT NAME: Carolina Crowell : 1980 MR: [id number] V: [id number] EXAM DATE: ORDERING PHYSICIAN: ESTEFANÍA VARELA TECHNOLOGIST: Location: [facility] Patient: Carolina Crowell : 1980 Visit/Account:[id number] Date of Sevice: 02/17/2019 L-SPINE >4 VIEWS History: back pain ADDITIONAL CLINICAL HISTORY none COMPARISON STUDIES: Comparison radiographs 11/29/2014 FINDINGS: Osseous structures: Normal. Spinal axis aligned. Disc space height : Well-maintained. Soft tissues : Normal. IMPRESSION: Negative exam. No radiographically evident disc disease. Etiology of patient's pain is not identified. Report Dictated By: Toni Gilmore MD at 02/17/2019 12:57 PM Report E-Signed By: Toni Gilmore MD at 02/17/2019 12:59 PM WSN:[id number]
[2019-02-17] MEDS ORDERED: CYCL10TA29 PO (13:17)
[2019-02-17] MEDS ORDERED: KET10 PO (13:17)
[2019-02-17 13:31] VITALS: BP 141/82
== END 2019-02-17 13:33 | disposition home or self-care (01) ==
LOC: ER 11:11
DX: S39.012A Strain of muscle, fascia and tendon of lower back, initial encounter (principal)
CPT/HCPCS: 36415; 72120; 81001; 82150; 83690; 84703; 85025; 96360; 96361; 99283; J7030; 82040; 82247; 82310; 82374; 82435; 82565; 82947; 84075; 84132; 84155; 84295; 84450; 84460; 84520

== ENCOUNTER 2019-04-07 12:31 | Emergency (ER) | payer SELFPAY ==
[~2019-04-07 12:31] MED LIST changes: +CYCL10TA29 PO
[2019-04-07] MEDS ORDERED: KETOROLAC 60 MG/2 ML VIAL IM ONE (12:55)
--- NOTE | 2019-04-07 12:58 | ER Report ---
History and Physical Time Seen By MD: 12:50 HPI/ROS CHIEF COMPLAINT: Abdominal pain HISTORY OF PRESENT ILLNESS: Patient is a 38 O female comes back to the emergency department complaining of left lower quadrant pain she says she is a history of ovarian cysts this feels very similar to her last set of ovarian cysts she is unclear last menses. Patient denies operative that she's . Patient says the pain is localized the left lower quadrant no urinary bladder bowel incontinence or difficulty and urinate urinating or dysuria no hematuria no pyuria so she does not think she is a kidney stone that she has had multiple kidney stones in the past she thinks this is her ovarian cyst again. This was actually rigid diagnosed 6 months ago but due to insurance issues was unable to follow through and follow up with [facility]ST. Patient says the pain is localized left lower quadrant dull aching sharp and stabbing episodic comes and goes no loosening relieving factors noted REVIEW OF SYSTEMS: Respiratory: No cough, no dyspnea. Cardiovascular: No chest pain, no palpitations. Gastrointestinal: Abdominal pain left lower quadrant no vomiting or diarrhea Musculoskeletal: No back pain. Remainder of the 14 system rev: Yes Allergies: Coded Allergies: No Known Drug Allergies (Verified , 02/16/18) Uncoded Allergies: RAG WEED (Allergy, Mild, 05/07/10) Home Meds Reported Medications Venlafaxine Hcl (VENLAFAXINE HCL ER) 225 Mg Tab.er.24, 225 MG PO QDAY 09/23/18 Discontinued Scripts Cyclobenzaprine Hcl (CYCLOBENZAPRINE HCL) 10 Mg Tablet, 10 MG PO TID PRN for MUSCLE SPASMS, #21 TAB Prov:ESTEFANÍA VARELA 02/17/19 Ketorolac Tromethamine (KETOROLAC TROMETHAMINE) 10 Mg Tab, 10 MG PO Q6H, #20 TAB Prov:ESTEFANÍA VARELA 02/17/19 Reviewed Nurses Notes: Yes Old Medical Records Reviewed: Yes Hx Smoking: Yes (1PPD) Smoking Status: Current: Every Day Smoker Exposure to Second Hand Smoke?: Yes Hx Substance Use Disorder: No Hx Alcohol Use: Yes Constitutional Vital Sign - Last 24 Hours 04/07/19 12:35 Temp 99.1 Pulse 105 Resp 20 B/P (MAP) 148/133 Pulse Ox 93 O2 Delivery Room Air Physical Exam General Appearance: [The patient is alert, has no immediate need for airway protection and no current signs of toxicity.] Appears uncomfortable Eyes: Pupils equal and round no injection. Respiratory: Chest is non tender, lungs are clear to auscultation. Cardiac: regular rate and rhythm [ ] Gastrointestinal: Mild tenderness to deep palpation of the left lower quadrant otherwise unremarkable exam normal bowel sounds Musculoskeletal: Neck: Neck is supple and non tender. Extremities have full range of motion and are non tender. Skin: No rashes or lesions. [ ] DIFFERENTIAL DIAGNOSIS: After history and physical exam differential diagnosis was considered for variances ovarian torsion ruptured ovarian cyst ectopic urinary tract infection kidney stones on [place] pneumonia Medical Decision Making Data Points Laboratory Hematology Test 04/07/19 00:00 04/07/19 12:41 Urine HCG, Qualitative Negative (NEGATIVE) Urine Color Yellow Urine Clarity Cloudy Urine pH 8.0 pH (4.8-9.5) Urine Specific [place] 1.019 Urine Protein Negative mg/dL (NEGATIVE) Urine Glucose (UA) Negative mg/dL (NEGATIVE) Urine Ketones Negative mg/dL (NEGATIVE) Urine Blood Negative (NEGATIVE) Urine Nitrite Negative (NEGATIVE) Urine Bilirubin Negative (NEGATIVE) Urine Urobilinogen Negative mg/dL (0.2-1.9) Urine Leukocyte Esterase Negative (NEGATIVE) Urine RBC <1 /HPF (0-2/HPF) Urine WBC 1 /HPF (0-5/HPF) Urine Squamous Epithelial Cells Many /LPF (</=FEW) Urine Amorphous Crystals Few /HPF Urine Bacteria Negative /HPF (NONE-FEW) Urine Mucus None /HPF (NONE-FEW) Chemistry Test 04/07/19 00:00 04/07/19 12:41 Urine HCG, Qualitative Negative (NEGATIVE) Urine Color Yellow Urine Clarity Cloudy Urine pH 8.0 pH (4.8-9.5) Urine Specific [place] 1.019 Urine Protein Negative mg/dL (NEGATIVE) Urine Glucose (UA) Negative mg/dL (NEGATIVE) Urine Ketones Negative mg/dL (NEGATIVE) Urine Blood Negative (NEGATIVE) Urine Nitrite Negative (NEGATIVE) Urine Bilirubin Negative (NEGATIVE) Urine Urobilinogen Negative mg/dL (0.2-1.9) Urine Leukocyte Esterase Negative (NEGATIVE) Urine RBC <1 /HPF (0-2/HPF) Urine WBC 1 /HPF (0-5/HPF) Urine Squamous Epithelial Cells Many /LPF (</=FEW) Urine Amorphous Crystals Few /HPF Urine Bacteria Negative /HPF (NONE-FEW) Urine Mucus None /HPF (NONE-FEW) Urinalysis Test 04/07/19 00:00 04/07/19 12:41 Urine HCG, Qualitative Negative (NEGATIVE) Urine Color Yellow Urine Clarity Cloudy Urine pH 8.0 pH (4.8-9.5) Urine Specific [place] 1.019 Urine Protein Negative mg/dL (NEGATIVE) Urine Glucose (UA) Negative mg/dL (NEGATIVE) Urine Ketones Negative mg/dL (NEGATIVE) Urine Blood Negative (NEGATIVE) Urine Nitrite Negative (NEGATIVE) Urine Bilirubin Negative (NEGATIVE) Urine Urobilinogen Negative mg/dL (0.2-1.9) Urine Leukocyte Esterase Negative (NEGATIVE) Urine RBC <1 /HPF (0-2/HPF) Urine WBC 1 /HPF (0-5/HPF) Urine Squamous Epithelial Cells Many /LPF (</=FEW) Urine Amorphous Crystals Few /HPF Urine Bacteria Negative /HPF (NONE-FEW) Urine Mucus None /HPF (NONE-FEW) ED Course/Re-evaluation ED Course ED course 40 erythema, the left lower quadrant pain ultrasound shows some small cystic changes but no obvious ovarian torsion or cystic large ovarian cyst offered her a CAT scan of the abdomen and pelvis she has declined chest x-ray showed no focal infiltrate most likely viral diagnosis viral upper respiratory and I advised her to do some blood work she's declined that as well she will go home and return if symptoms worsen Decision to Disposition Date: April 07, 2019 Decision to Disposition Time: 14:23 Depart Departure Latest Vital Signs Vital Signs Date Time Temp Pulse Resp B/P (MAP) Pulse Ox O2 Delivery O2 Flow Rate FiO2 04/07/19 12:35 99.1 105 20 148/133 93 Room Air Impression: Primary Impression: Viral upper respiratory illness Additional Impression: Ovarian cyst Condition: Condition Unchanged Disposition: HOME OR SELF-CARE Referrals: TONY NATION MD (PCP) 5 Days Patient Instructions: Laparoscopic Excision of Ovarian Cysts (DC), Upper Respiratory Infection (DC) Problem Qualifiers DENISE MAY MD April 07, 2019 12:58
--- NOTE | 2019-04-07 13:31 | RADIOLOGY IMAGING REPORT ---
[place] [facility] [place] Carolina Crowell : 1980 MR: [id number] V: [id number] EXAM DATE: ORDERING PHYSICIAN: DENISE MAY TECHNOLOGIST: [place] [facility] [place] Crowell : 1980 Visit/Account:[id number] Date of Sevice: 04/07/2019 CHEST PA LAT COMPARISON: September 23, 2018 HISTORY: Cough and shortness of breath FINDINGS: CARDIAC/VASC: No cardiac silhouette abnormality or cardiomegaly. Unremarkable pulmonary vasculatu re. MEDIASTINUM: No visible mass or adenopathy. LUNGS/PLEURA: No pneumothorax. No significant pulmonary parenchymal abnormalities. No effusion or p leural thickening. BONES: No fracture or visible bony lesion. OTHER:Negative. IMPRESSION: Normal radiographic appearance of the chest. Report Dictated By: Dagoberto Edmonds at 04/07/2019 1:26 PM Report E-Signed By: Dagoberto Edmonds at 04/07/2019 1:27 PM WSN:[id number]
--- NOTE | 2019-04-07 14:08 | RADIOLOGY IMAGING REPORT ---
FACILITY: [facility] [place] PATIENT NAME: Carolina Crowell : 1980 MR: [id number] V: [id number] EXAM DATE: ORDERING PHYSICIAN: DENISE MAY TECHNOLOGIST: Location: [facility] Patient: Carolina Crowell : 1980 Visit/Account:[id number] Date of Sevice: 04/07/2019 TRANSVAGINAL NON-OB HISTORY: Pelvic pain, history of ovarian cysts TECHNIQUE: Transvaginal ultrasound pelvis. COMPARISON: September 27, 2018, CT abdomen pelvis FINDINGS: Uterus: ; 7 cm length x 3.8 cm AP x 4.7 cm transverse. Myometrium: Unremarkable. Endometrium: Unremarkable; double thickness 1.1 mm. Cervix: Nabothian cysts. Ovaries: Right - 2.2 x 1.7 x 1.3 cm and contains multiple small follicles Left - 2 x 2.3 x 2 cm and contains multiple small follicles Blood flow is documented in each ovary by duplex Doppler ultrasound. Adnexa: Grossly unremarkable. Free pelvic fluid: None. IMPRESSION: Unremarkable pelvic ultrasound Report Dictated By: Gay Bronson MD at 04/07/2019 2:00 PM Report E-Signed By: Gay Bronson MD at 04/07/2019 2:05 PM WSN:[email or web address]
[2019-04-07 14:28] VITALS: BP 132/92
== END 2019-04-07 14:29 | disposition home or self-care (01) ==
LOC: ER 12:47
DX: J06.9 Acute upper respiratory infection, unspecified (principal); N88.8 Other specified noninflammatory disorders of cervix uteri
CPT/HCPCS: 71046; 76830; 81001; 81025; 96372; 99284; J1885